=== PATIENT | male | born 1960 | race Caucasian/White ===

== ENCOUNTER 2016-11-11 01:44 | Inpatient (IN) | payer BC ==
--- NOTE | ~2016-11-11 | IDS ---
Interim Discharge Summary [facility] [address] [place]. [address] NAME: SARAH KAY : 62 STATUS : ADM IN PAT#: [id number] AGE: 55 ADM/REG DATE : 11/11/16 MR#: [id number] REPORT SERV DATE: 11/22/16 DICTATED BY: MARIO GHOSH DATE: 11/22/16 REPORT STATUS : Draft TRANSCRIBED BY: MODLidia DATE: 11/22/16 ADMISSION DATE: 11/11/2016 DISCHARGE DATE: DIAGNOSES: So far include: 1. Kbe-UJ-jgvcofo-elevation myocardial infarction/multivessel coronary artery disease, for which the patient had to undergo coronary artery bypass grafting, today is postop day #3 and the patient is doing well. 2. Coronary artery disease, multivessel. 3. Hypertension, stable with medications. The patient is on a beta-nick currently. 4. Diabetes mellitus, well controlled with current insulin regimen. 5. Hyperlipidemia, the patient is on Lipitor and this is stable. 6. Obesity. 7. Tobacco abuse, the patient has quit smoking as of now. 8. Leukocytosis, most likely secondary to the CABG procedure itself as the patient is asymptomatic and doing well. BRIEF HOSPITAL COURSE: Mr. Kay is a 55-year-old male patient, who came in with chest pain and NSTEMI. The patient was watched for some time with IV heparin and within 24 hours, underwent cardiac catheterization. It was found that he had multivessel coronary artery disease, but since he was started on Plavix, the surgeons had to wait for Plavix washout. Then, the patient did undergo CABG after Plavix washout and came out fine. Today is postop day #3, and the patient is doing really well. He continues to have a wound drain in place, and there are also two other abdominal drains in place. It is up to CT Surgery to decide on taking these out. Today, he feels well, but still a little weak and definitely not ready for discharge. He may be ready for discharge in the next day or two based on Cardiology and CT Surgery opinion. ASHTYN/UNRULY Mario Ghosh M.D. / [id number] CC: Mario Ghosh M.D.
--- NOTE | ~2016-11-11 | DS ---
Discharge Summary [facility] [address] [facility] [place]. [address] NAME: SARAH KAY : 62 STATUS : DIS IN PAT#: [id number] AGE: 55 ADM/REG DATE : 11/11/16 MR#: [id number] REPORT SERV DATE: 11/23/16 DICTATED BY: DARLENE COELLO DATE: 11/23/16 REPORT STATUS : Draft TRANSCRIBED BY: MODL DATE: 11/23/16 ADMISSION DATE: 11/11/2016 DISCHARGE DATE: 11/23/2016 ADDENDUM: Addendum to interim discharge summary dictated by Dr. Kaci Siegel, yesterday on 11/22/2016. The patient was discharged on 11/23/2016. DISCHARGE DIAGNOSES: 1. Non-ST elevated myocardial infarction with multivessel coronary artery disease, status post coronary artery bypass grafting. 2. Multivessel coronary artery disease. 3. Hypertension, controlled on current medication regimen. 4. Diabetes mellitus, was controlled on metformin. Continue metformin. 5. Hyperlipidemia, on Lipitor, controlled. 6. Obesity. 7. Tobacco abuse. The patient to quit smoking. 8. History of chronic obstructive pulmonary disease, controlled. 9. Leukocytosis, resolved. CONSULTANTS ON THE CASE: Aerologist, Dr. Chan and Cardiothoracic surgery, Dr. Haddad and his nurse practitioner, Felix Barrera. For the whole details of hospitalization please refer to history of present illness dictated by Dr. Whyte and also to interim discharge summary dictated by Dr. Kaci Siegel on 11/22/2016. I personally saw this patient on the day of discharge, on 11/23/2016. The patient was doing well. He did not have any shortness of breath. No chest pain. Dr. Chan recommended the patient to be discharged and follow up with him in two to three weeks as well as cardiothoracic surgeon's nurse practitioner, Felix Barrera also recommended the patient to be discharged and follow up with Dr. Haddad in three to four weeks. The patient also was recommended to follow up with primary care provider, Yesenia Mac for further blood sugar control. His hemoglobin A1c on 11/15/2016 was 6.6, on 11/18/2016 was 7. His blood sugar was controlled. He is okay to continue metformin at a dose of 500 mg p.o. b.i.d., and if necessary he can increase to 1000 mg p.o. b.i.d. This was discussed with the patient once discharged in a stable condition. DISCHARGE MEDICATIONS: Albuterol MDI one to two puffs q.6 hours p.r.n. for shortness of breath; amiodarone 200 mg p.o. b.i.d., prescription was prescribed by Dr. Chan; aspirin 81 mg daily; Lipitor 40 mg daily; Plavix 75 mg p.o. daily, prescription was written by Felix Barrera for three months; hydrocodone with acetaminophen 10/325 one tablet p.o. q.6 hours p.r.n. for pain, prescription was written by Felix Barrera; metformin 500 mg p.o. b.i.d. to continue and if necessary can increase to 1000 mg p.o. b.i.d.; metoprolol 12.5 mg p.o. b.i.d., prescription was written by Dr. Chan; nitroglycerin at 0.3 mg sublingually as needed for chest pain; Spiriva one capsule by inhalation q.24 hours. The patient was told to stop HCTZ and stop Mobic. Discharge Summary [address] [address] NAME: SARAH KAY : 62 STATUS : DIS IN PAT#: [id number] AGE: 55 ADM/REG DATE : 11/11/16 MR#: [id number] REPORT SERV DATE: 11/23/16 DICTATED BY: DARLENE COELLO DATE: 11/23/16 REPORT STATUS : Draft TRANSCRIBED BY: MODLidia DATE: 11/23/16 The patient needs to follow up with Dr. Chan in two to three weeks. Follow up with Cardiothoracic Surgery nurse practitioner and Dr. Haddad in two to three weeks, and with Yesenia Mac in two weeks for further blood sugar control. The patient was discharged in a stable condition. I spent 45 minutes on discharge. MG/UNRULY Darlene Coello M.D. / [id number] CC: Neal Cardoso M.D.
--- NOTE | ~2016-11-11 | CN ---
Consultation Report [facility] [address] [place]. [address] NAME: SARAH KAY : 62 STATUS : ADM Kristy PAT#: [id number] AGE: 55 ADM/REG DATE : 11/11/16 MR#: [id number] REPORT SERV DATE: 11/11/16 DICTATED BY: YOKO TALAMANTES DATE: 11/11/16 REPORT STATUS : Draft TRANSCRIBED BY: MODL DATE: 11/11/16 CONSULT DATE OF CONSULTATION: 11/11/2016 NURSE-PRACTITIONER WITH CARDIOTHORACIC SURGERY REASON FOR CONSULTATION: Multivessel coronary artery disease, non-ST elevation myocardial infarction. HISTORY OF PRESENT ILLNESS: This is a 55-year-old, morbidly obese, male with a history of hypertension, type 2 diabetes mellitus, obstructive sleep apnea, and ongoing tobacco abuse. He presented to the [facility] Emergency Room last night with complaints of chest pain that was radiating to his jaw. He said that he has been having chest pain on and off for the last two weeks but finally went yesterday evening for evaluation. In the Emergency Room there, he had elevated troponin and was transferred here. He has apparent history of allergy to aspirin so he was given 300 mg of Plavix this morning and then another 75 mg this afternoon prior to being taken for arteriogram which showed multivessel coronary artery disease including 80% ostial to 95% mid LAD, 90% proximal circumflex, 75% first obtuse marginal, 85% ostial left circumflex, 60% mid RCA, 95% right PDA, and 70% second RPL. V-gram was not performed due to elevated creatinine. Transthoracic echocardiogram earlier today showed ejection fraction around 45% to 50% with no significant valvular disease. Currently, the patient is recovering after arteriogram with no complaints of chest pain or shortness of breath. His family is with him at the bedside. PAST MEDICAL HISTORY: Hypertension, obesity, obstructive sleep apnea, recently diagnosed with type 2 diabetes mellitus, and ongoing tobacco abuse. PAST SURGICAL HISTORY: No prior surgeries. SOCIAL HISTORY: He smoked around a pack and half to two packs per day for around 30-40 years. He denies any history of alcohol abuse or use of illicit drugs. He has a very large supportive family. 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 FAMILY HISTORY: He has a mother with history of lung cancer, father with coronary artery disease, and cancer. ALLERGIES: REPORTED ALLERGY TO ASPIRIN WHICH CAUSES PERIORBITAL SWELLING. HOME MEDICATIONS: Hydrochlorothiazide 25 mg per day, meloxicam 7.5 mg b.i.d., and metformin 500 mg p.o. b.i.d. REVIEW OF SYSTEMS: A 10-point review of systems was obtained and is negative other than HPI. Consultation Report [facility] [id number] [place]. [address] NAME: SARAH KAY : 62 STATUS : ADM Kristy PAT#: [id number] AGE: 55 ADM/REG DATE : 11/11/16 MR#: [id number] REPORT SERV DATE: 11/11/16 DICTATED BY: YOKO TALAMANTES DATE: 11/11/16 REPORT STATUS : Draft TRANSCRIBED BY: UNRULY DATE: 11/11/16 DATA: White blood cell count 9.1, hemoglobin 15.2, hematocrit 45.8, platelets 229. Sodium 139, potassium 3.8, chloride 102, bicarbonate 27, BUN 20, creatinine 1.3. Glucose 151, hemoglobin A1c 6.9%. PHYSICAL EXAMINATION: VITAL SIGNS: Temperature 97.7, heart rate 76, blood pressure 110/65, respiratory rate 15, O2 saturation 95% on 3 L. GENERAL: Morbidly obese male, lethargic in no acute distress. PSYCH: Normal mood, talkative pleasant. NEURO: Alert and oriented x3. Pupils are equal, round, reactive to the light and accommodation. He has equal strength bilateral upper extremities and bilateral lower extremities. Left lower extremity is uncomfortable for him to move due to previous injury. HEENT: Head normocephalic, atraumatic. Sclerae clear. He has exophthalmos. Nose midline with no abnormalities. Teeth good dentition overall. Ears, no abnormalities. NECK: Supple. No thyromegaly or lymphadenopathy. LUNGS: Clear to auscultation bilaterally. Diminished at bases. CARDIAC: S1-S2 with no murmurs, rubs, or gallops. I do not appreciate any bruits on auscultation of the carotids. ABDOMEN: Obese, nontender with active bowel sounds. EXTREMITIES: Generalized lower extremity edema. Pedal pulses are present and equal bilaterally. ASSESSMENT AND PLAN: This is a 55-year-old, male, with history of high blood pressure, type 2 diabetes mellitus, obstructive sleep apnea with ongoing tobacco abuse. He has had chest pain x2 weeks. He was admitted with non-ST elevation DE and found to have 3-4 vessel CAD in need of urgent revascularization but has unfortunately received 375 mg of Plavix today. I discussed the risks and benefits of surgery as well as his STS risk scores. STS risk stratification for him and this particular surgery included an overall mortality of 1.5% and morbidity mortality of 24%. I discussed these findings in relation to his surgery and expectations for recovery, and the patient is hesitant to stay but agreeable to proceed. We will ask Pulmonary to see him prior to surgery for evaluation and workup. We will also get a CT scan of the chest without contrast and bilateral lower extremity venous mapping, most likely have to wait until next Tuesday to proceed with surgery to allow for Plavix washout. Thank you for the consultation. JAYLA/UNRULY Yoko Talamantes NP Consultation Report [address] [address] NAME: SARAH KAY : 62 STATUS : ADM Kristy PAT#: [id number] AGE: 55 ADM/REG DATE : 11/11/16 MR#: [id number] REPORT SERV DATE: 11/11/16 DICTATED BY: YOKO TALAMANTES DATE: 11/11/16 REPORT STATUS : Draft TRANSCRIBED BY: UNRULY DATE: 11/11/16 / [id number] CC: MD Merly Drummond M.D.
--- NOTE | ~2016-11-11 | HP ---
History And Physical [facility] [address] [place]. [address] NAME: SARAH KAY : 62 STATUS : ADM Kristy PAT#: [id number] AGE: 55 ADM/REG DATE : 11/11/16 MR#: [id number] REPORT SERV DATE: 11/11/16 DICTATED BY: CHELSIE DE GUZMAN DATE: 11/11/16 REPORT STATUS : Draft TRANSCRIBED BY: MODLidia DATE: 11/11/16 DATE OF ADMISSION: 11/11/2016 POINT OF ENTRY: Transfer from [facility] Emergency Department. CHIEF COMPLAINT: Chest pain. HISTORY OF PRESENT ILLNESS: Mr. Kay is a 55-year-old male with a history of hypertension, ljg-wvmgxtw-tibgiwozh diabetes type 2, as well as active tobacco abuse, who presented to [facility] Emergency Department the evening of 11/10/2016 with a two-week history of intermittent episodes of substernal chest pain. The patient states for the past two weeks, he has had intermittent episodes of substernal chest discomfort described as heaviness with pressure as well as sometimes soreness. The patient actually described the discomfort originally started as a feeling as if there was outward pressure on his chest as well as sensation of an air bubble under his sternum. Initially, these chest pain episodes occurred at night and awaken him from sleep. However, they have started to occur with more frequency and actually occurred three separate times on the evening of 11/10/2016 prompting his presentation to the emergency department. The patient denies any radiation of this discomfort or soreness, but does report some associated fatigue, exercise intolerance, as well as shortness of breath. The patient reportedly suffered a mechanical fall about four months ago with injuring his right shoulder. Since then, he has had persistent dizziness as well as headaches, which have improved as time has gone on since his accident, but are still persistent. The patient does admit to some recent gastroesophageal reflux disease as well. Initial evaluation at [facility] Emergency Department is notable for EKG that was nonischemic. Troponin was negative. D-dimer was negative. CT scan of the brain also was undertaken that reportedly was unremarkable. The patient was subsequently transferred to [facility] for higher level of care. Upon admission here, his repeat EKG also was nonischemic. However, repeat cardiac enzymes do show an elevated CK level of 275 and troponin 0.21. The patient was subsequently admitted to the Hospitalist Service for further evaluation management. In addition to the above-mentioned complaints, the patient denies any recent troubles with abdominal pain, nausea, vomiting, diarrhea, constipation, dysuria, melena, hematochezia, hemoptysis, hematemesis, fevers, night sweats, or chills. COMPREHENSIVE REVIEW OF SYSTEMS: Otherwise, negative unless listed in history of present illness. PAST MEDICAL HISTORY: 1. Active tobacco abuse. 2. Hypertension. History And Physical [address] [address] NAME: SARAH KAY : 62 STATUS : ADM Kristy PAT#: [id number] AGE: 55 ADM/REG DATE : 11/11/16 MR#: [id number] REPORT SERV DATE: 11/11/16 DICTATED BY: CHELSIE DE GUZMAN DATE: 11/11/16 REPORT STATUS : Draft TRANSCRIBED BY: MODLidia DATE: 11/11/16 3. Uvr-lxhmckk-fkmgelagz diabetes mellitus type 2. SURGICAL HISTORY: None. ALLERGIES: ARE TO ASPIRIN, WHICH CAUSES PERIORBITAL SWELLING. HOME MEDICATIONS: 1. Hydrochlorothiazide 25 mg daily. 2. Meloxicam 7.5 mg b.i.d. 3. Metformin 500 mg b.i.d. SOCIAL HISTORY: He smokes about one to one and a half packs daily for the past 30+ years. He has at least 87-toad-doee smoking history. Denies any alcohol. Denies illicits. 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 FAMILY MEDICAL HISTORY: Mother with history of lung cancer. Father with coronary artery disease in his 60s, also with cancer. Siblings with history of coronary artery disease in 40s. LABS AND IMAGING: These were all obtained from transfer records from [facility] Emergency Department. 1. White count 11.2, hemoglobin 15.8, hematocrit 48.5, platelets 233. 2. Sodium is 140, potassium 4.3, chloride 100, carbon dioxide 34, BUN 28, creatinine 1.4, glucose is 113, calcium is 10.8, protein 7.5, albumin is 4.0, bilirubin is 0.3, ALT is 39, AST 27, alkaline phosphatase is 73. 3. Troponin 0.06, cut off is less than 0.07. D-dimer was 0.25, cut off was less than 0.50. 4. Chest x-ray per report is no acute abnormality. 5. CT scan of the brain per report shows no acute abnormality. 6. EKG performed at [facility] per my review shows normal sinus rhythm. No evidence of any acute ischemia or infarction. 7. Repeat cardiac enzymes at [facility], CK 275, CK-MB 4.8, troponin 0.21. PHYSICAL EXAMINATION: VITAL SIGNS: Temperature is 97.5 degrees Fahrenheit, pulse is 95, respirations 16, saturating 93% on 2 L by nasal cannula, blood pressure 143/77. GENERAL: The patient is awake, alert, in no acute distress. Resting comfortably in bed. He is an obese male. Family is at bedside. HEENT: Atraumatic, normocephalic. Moist mucous membranes. Pupils are equal, round, reactive to light and accommodation. Extraocular eye movements are intact. No scleral icterus. NECK: No jugular venous distention. No carotid bruits. CARDIAC: Regular rate and rhythm. No murmurs or gallops. Normal S1, S2. I am unable to reproduce any of his chest discomfort with palpation over the precordium or sternum. LUNGS: Clear to auscultation bilaterally. No wheezes, rhonchi, or crackles. ABDOMEN: Obese, soft, nontender, nondistended. Good bowel sounds. No rebound, guarding, or rigidity. History And Physical [address] [address] NAME: SARAH KAY : 62 STATUS : ADM Kristy PAT#: [id number] AGE: 55 ADM/REG DATE : 11/11/16 MR#: [id number] REPORT SERV DATE: 11/11/16 DICTATED BY: CHELSIE DE GUZMAN DATE: 11/11/16 REPORT STATUS : Draft TRANSCRIBED BY: MODL DATE: 11/11/16 EXTREMITIES: Warm and well perfused. No cyanosis, clubbing, or edema. SKIN: Warm and dry. PSYCH: Affect appropriate. NEURO: Alert and oriented x3. Cranial nerves 2 through 12 grossly intact. Speech is normal. Gait is not assessed. ASSESSMENT AND PLAN: Mr. Kay is a 55-year-old gentleman with falling, cardiac risk factors including obesity, family history of hypertension, diabetes, and active tobacco abuse, who presents with a two-week history of intermittent episodes of substernal chest pain and discomfort concerning for unstable angina, now found to have elevated troponin level 0.21. PROBLEM LIST: 1. Itp-JI-rtidvvyaq myocardial infarction. 2. Hypertension. 3. Wbj-jdbohxz-doyctrxvi diabetes mellitus type 2. 4. Active tobacco abuse. PLAN: 1. Bqz-FY-aldpvjbdi myocardial infarction. The patient has no previous coronary history, but does have multiple risk factors including diabetes, hypertension, tobacco abuse, family history, and morbid obesity. Now has a second set of cardiac enzymes that are mildly elevated. We will continue to trend out cardiac enzymes. Consult Cardiology for assistance given his elevated troponin level. We will initially schedule him for a stress test this morning. We will defer to Cardiology. Given his aspirin allergy, we will place him on Plavix as well as a high-dose statin. Checking lipid panel as well as hemoglobin A1c for further risk stratification. Counseled on need for tobacco cessation. 2. Hypertension. Continue the patient's hydrochlorothiazide. Continue to monitor blood pressure. 3. Qra-rmxxcki-xhynulhgw diabetes mellitus type 2. Check hemoglobin A1c. Holding metformin. Place him on level 1 sliding scale. 4. Active tobacco abuse. Counseled need for tobacco cessation. Nicotine replacement protocol. 5. DVT prophylaxis. Lovenox subcu. CODE STATUS: The patient wished to be full code. CARLOS/UNRULY Chelsie De Guzman MD / [id number] History And Physical [address] [address] NAME: SARAH KAY : 62 STATUS : ADM Kristy PAT#: [id number] AGE: 55 ADM/REG DATE : 11/11/16 MR#: [id number] REPORT SERV DATE: 11/11/16 DICTATED BY: CHELSIE DE GUZMAN DATE: 11/11/16 REPORT STATUS : Draft TRANSCRIBED BY: MODL DATE: 11/11/16 CC: MD Yesenia Oliva M.D.
--- NOTE | ~2016-11-11 | OP ---
Record Of Operation [facility] [place]. 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 ANESTHESIOLOGIST: Chris Hernandez M.D. PREOPERATIVE DIAGNOSES: 1. Non-ST segment elevation myocardial infarction. 2. Three-vessel coronary artery disease. 3. Hypertension. 4. Morbid obesity. 5. Obstructive sleep apnea. 6. Diabetes mellitus type 2. 7. Tobacco abuse. 8. Chronic obstructive pulmonary disease. POSTOPERATIVE DIAGNOSES: 1. Non-ST segment elevation myocardial infarction. 2. Three-vessel coronary artery disease. 3. Hypertension. 4. Morbid obesity. 5. Obstructive sleep apnea. 6. Diabetes mellitus type 2. 7. Tobacco abuse. 8. Chronic obstructive pulmonary disease. OPERATION PROCEDURE PERFORMED: 1. Median sternotomy. 2. Extracorporeal circulation. 3. Urgent coronary artery bypass grafting x5, left internal mammary artery, left anterior descending, reverse greater saphenous vein graft to D1, reverse greater saphenous vein graft to obtuse marginal #1, reverse greater saphenous vein graft to PDA sequenced to PLB. 4. MASSIMO. 5. Endoscopic vein harvest of right leg. 6. Sternal plating with [employer] SternaLock Chandana system. 7. Prevena dressing placement. COMPLICATIONS: None. TUBES AND DRAINS: A 24-Ghanaian Claudio in the left pleural space. A 32-Ghanaian straight to the anterior mediastinum. Atrial and ventricular wires were placed. POSTOPERATIVE CONDITION: To CVICU on no inotropic support. Transesophageal echo showed no AI, no , no MR, normal EF. Postoperative, there was preserved wall motion. Record Of Operation [facility] [address] [place]. [address] NAME: SARAH KAY : 62 STATUS : ADM IN PAT#: [id number] AGE: 55 ADM/REG DATE : 11/11/16 MR#: [id number] REPORT SERV DATE: 11/19/16 DICTATED BY: JASON BALDWIN DATE: 11/19/16 REPORT STATUS : Draft TRANSCRIBED BY: MODLidia DATE: 11/19/16 INTRAOPERATIVE FINDINGS: Enlarged heart and diffusely diseased targets with good ventricular function. The LAD was intramyocardial. All targets had diffuse disease. If he is to be considered for a redo in the future, he must lose at least 100 pounds prior to a redo. Currently, he is 330 pounds. DETAILS OF CARDIOPULMONARY BYPASS GRAFTIN. Graft #1, left internal mammary artery, left anterior descending, this was deepened and intra-myocardium, this is a 1.5 mm target. 2. Reverse greater saphenous vein graft to D2, this was a 1.5 mm target, diffusely diseased. 3. Reverse greater saphenous vein graft to obtuse marginal #1, this was a 1.5 mm target, it was diffusely diseased. 4. Reverse greater saphenous vein graft sequenced to the posterior descending artery and the posterior lateral branch. These were both 1.75 mm targets in both the PDA and the PLB were diffusely diseased along the entire course, could not clear the distal disease on either of these grafts. INDICATIONS FOR PROCEDURE: Mr. Kay is a morbidly obese, 55-year-old smoker with hypertension, diabetes mellitus who presented with an NSTEMI and underwent coronary catheterization which showed severe three-vessel coronary disease. He was admitted to the hospital and underwent a Plavix washout. Risks, benefits, and alternatives were discussed with the patient including, but not limited to, bleeding, infection, stroke, , heart attack, need for future operations. All questions were answered. His STS risk score was calculated and discussed with the patient. Mortality less than 5% and morbidity mortality less than 20%. All questions were answered. DESCRIPTION OF PROCEDURE: The patient was brought to the operating room and placed supine on the operating room table. After satisfactory induction of general endotracheal anesthesia, he was prepped and draped in the usual sterile fashion. Working simultaneously, a median sternotomy was performed while the endoscopic vein harvest was performed from the right leg. Skin and subcutaneous tissues were divided clavipectoral fascia was divided. Sternum was divided in the midline. Rultract retractor was placed and the internal mammary artery was harvested in a pedicle from its takeoff under the subclavian vein at the bifurcation of the diaphragm. Systemic heparinization was achieved. After three minutes, the pedicle was clipped and divided at the bifurcation. Hemostasis was obtained along the chest wall. A 24 Ghanaian Claudio was placed in the left pleural space and exteriorized. The Rultract retractor was removed. Sternal retractor was placed. The thymic tissue was divided in the midline up to the innominate vein. The pericardium was opened in the midline and T'd at the diaphragm. Pericardial well was created. Ascending aorta was cannulated through dual pursestring at the base of the innominate artery. Antegrade root vent cardioplegia tack was placed and a dual stage venous cannula was placed in the pursestring in the right atrial appendage. The vein was inspected and prepared for bypass. The mammary was brought down through a wide V in the pericardium prepared for bypass. The cardiopulmonary bypass was initiated after documentation of an adequate ACT. The targets were inspected. The cross-clamp was brought up and the heart was arrested with cold antegrade cardioplegia switching to cold antegrade cardioplegia and intermittent aliquots every 15 to 20 minutes throughout the remainder of Record Of Operation [facility] [id number] [facility] [place]. [address] NAME: SARAH KAY : 62 STATUS : ADM IN [facility]#: [id number] AGE: 55 ADM/REG DATE : 11/11/16 MR#: [id number] REPORT SERV DATE: 11/19/16 DICTATED BY: JASON BALDWIN DATE: 11/19/16 REPORT STATUS : Draft TRANSCRIBED BY: MODLidia DATE: 11/19/16 the cross clamp. The grafts were then performed as mentioned in the findings. All distal anastomoses were done with 8-0 Surgipro. The proximal anastomoses were done with 6-0 Prolene. Vein graft markers were placed. The grafts were de-aired and the atrial and ventricular pacing wires were placed and the cross-clamp was removed. The patient returned to normal sinus rhythm and was ultimately able to be weaned off cardiopulmonary bypass on inotropic support. Protamine was administered. He was decannulated. All cannulation sites were oversewn with 4-0 Prolene. Hemostasis was obtained. The pericardium was loosely reapproximated over the ascending aorta and the right ventricle with 2-0 silk. The 32- Ghanaian chest tube was placed under the sternum. The sternum was reapproximated with stainless steel sternal wires. Some of these were double wires. Pectoral fascia flaps were raised to the edge of the sternum and two SternaLock Chandana X plates were placed in the body of the sternum between the sternal wires and one 100-degree plate was placed on the manubrium, a total of 20 #16 mm screws were used to secure the plates. The clavipectoral fascia was reapproximated using running #1 Stratafix, subcutaneous tissues closed using running #1 Stratafix, skin closed using 2-0 Quill and Prevena dressing was placed. The patient was transferred to the CVICU in critical, stable condition [facility]/MODL Jason Baldwin MD / [id number] CC: MD Jhoan Gibson Jr., M.D.
--- NOTE | ~2016-11-11 | IDS ---
Interim Discharge Summary [facility] [address] [place]. [address] NAME: SARAH KAY : 62 STATUS : ADM IN PAT#: [id number] AGE: 55 ADM/REG DATE : 11/11/16 MR#: [id number] REPORT SERV DATE: 11/15/16 DICTATED BY: DATE: REPORT STATUS : Draft TRANSCRIBED BY: MODL DATE: 11/15/16 ADMISSION DATE: 11/11/2016 DISCHARGE DATE: DIAGNOSES: Current interim diagnoses list includes: 1. Non-STEMI. 2. Chest pain with pressure. 3. Hypertension. 4. Diabetes mellitus type 2. 5. Tobacco abuse. 6. Gastroesophageal reflux disease. 7. Morbid obesity with BMI of 47.3. 8. Multivessel coronary artery disease. 9. Heart failure with ejection fraction of 45%. 10.Dyslipidemia. HISTORY OF PRESENT ILLNESS: This is a 55-year-old male with a history of hypertension, non insulin-dependent diabetes mellitus type 2, as well as active tobacco abuse, who presented to [facility] Emergency Department on 11/10/2016 with a two-week history of intermittent episodes of substernal chest pain. Please see Dr. Dimitri Whyte's H and P on 11/11/2016. The patient was given aspirin at the hospital and developed a true aspirin allergy with swelling of his eyes after exposure to the drug. The patient has also been given Plavix at [facility]. The patient had aspirin desensitization performed by Dr. Chan on 11/12/2016 and a heart catheterization also done on 11/12/2016. The patient stayed in ICU until transferred to the floor on 11/14/2016. The patient had been loaded with Plavix on 11/11/2016, and he was supposed to go down for bypass surgery today but his TEG was 66%. We will be redrawing his TEG in the morning, and if it is appropriate, he will be having surgery around 1 o'clock. The patient has been seeing Dr. Bose for his potential surgery and Dr. Chan for Cardiology. Consultation has also been done with Pulmonary, Dr. Ortez to optimize his oxygenation. The patient has had an overnight sleep assessment and is awaiting the results of his sleep apnea workup. The patient did say that he had asthma as a child, but he grew out of it. Please see dictation by Sebastien Carrasquillo from 11/12/2016. The patient is receiving aggressive pulmonary toilet and has already been practicing with his ICS q.1 hour. Consult with Cardiovascular Surgery. He has a consultation on 11/11/2016, for three-vessel coronary artery disease. PROCEDURES AND IMAGIN. 11/11/2016, portable chest x-ray showed mild vascular prominence and potential early edema with no airspace consolidation. 2. 11/12/2016, carotid blood flow study showed no appreciable stenosis of the right carotid artery and findings were compatible with less than 50% stenosis of the left internal carotid artery. The vertebral arteries are patent with antegrade flow bilaterally. 3. 11/12/2016, chest x-ray without contrast showed minimal subpleural, lateral right lung base inflammatory or infectious tree in bud-like opacity, otherwise clear lungs. Three- vessel coronary artery atherosclerosis and/or stenting. Interim Discharge Summary [address] [address] NAME: SARAH KAY : 62 STATUS : ADM IN [facility]#: [id number] AGE: 55 ADM/REG DATE : 11/11/16 MR#: [id number] REPORT SERV DATE: 11/15/16 DICTATED BY: DATE: REPORT STATUS : Draft TRANSCRIBED BY: MODL DATE: 11/15/16 4. 11/12/2016 vein mapping of bilateral lower extremity showed bilateral greater saphenous veins, bilateral small saphenous veins mapping with ultrasound. 5. 11/15/2016, chest PA and lateral showed no evidence of acute cardiopulmonary disease. During this time, the patient's hemoglobin A1c is 6.6. Sodium is 141, potassium is 3.8, chloride is 102, bicarb is 30.2, BUN is 16, creatinine is 1.09, GFR is 89, glucose is 118, calcium is 9.0, magnesium is 2.4, phosphorus 3.4, WBCs 9.6, hemoglobin 15.7, hematocrit 36.1, platelets 219 and INR 1.1. [facility]/MODL Maddie Barreto NP / [id number] CC: MD Merly Chavez M.D.
--- NOTE | ~2016-11-11 | CN ---
Consultation Report [facility] [address] [place]. [address] NAME: SARAH KAY : 62 STATUS : ADM Kristy PAT#: [id number] AGE: 55 ADM/REG DATE : 11/11/16 MR#: [id number] REPORT SERV DATE: 11/15/16 DICTATED BY: KILO HAYWOOD DATE: 11/12/16 REPORT STATUS : Draft TRANSCRIBED BY: MODL DATE: 11/12/16 CONSULTATION NOTE DATE OF CONSULTATION: 11/12/2016 CHIEF COMPLAINT: Chest pain in a patient currently under consideration for coronary artery bypass graft surgery. HISTORY OF PRESENT ILLNESS: Mr. Sarah Kay is a morbidly obese, 55-year-old white male with a past medical history significant for hypertension and diabetes, who presents to [facility] as a transfer from an outside facility for complaints of chest pain. It should be noted that, Mr. Kay has not been hospitalized recently and is usually in relatively good health. Mr. Kay is not currently under the care of a skilled helper. He is not usually require supplemental oxygen. He is on no pulmonary medications. The patient has smoked up until the time of presentation. He smoked approximately one pack a day for approximately forty years. He does confirm snoring, frequent nighttime awakenings, daytime hypersomnolence, and frequent napping. He states that, he did have overnight sleep assessment and is currently in the process of an ongoing obstructive sleep apnea workup. The patient states that, he did have asthma as a child, but "grew out of it". He describes his exercise tolerance as being fairly good, being able to walk 50 to 100 yards before experiencing some degree of shortness of breath. Mr. Kay states that, he has not been followed by a primary care physician until recently. He was recently started on a hydrochlorothiazide as well as metformin. Apparently, this physician initiated the workup for obstructive sleep apnea. Moving forward, over the last week he has experienced episodic left-sided chest pain, which eventually prompted his presentation to an outside facility. He was eventually transferred to [facility] and underwent cardiac catheterization, which demonstrated 3-vessel disease. He is currently under consideration for potential coronary artery bypass graft surgery. Given his past tobacco abuse, he has been referred to the Pulmonary Service for risk assessment as well as optimization. Currently, Mr. Kay is on 2 L of supplemental oxygen with good saturations. He denies any dyspnea at rest. He denies any wheezing. He does not demonstrate a productive cough. He denies any previous pneumonias or exacerbations of his breathing. He does state that, he had asthma as a child, but again states that he "grew out of it". The patient does have known hypertension. He does have known coronary artery disease. He currently denies any murmurs or palpitations. In regard to constitutional symptoms, he currently denies fever, chills, nausea, vomiting, abdominal pain. He has had some mild lower extremity edema as of late. Consultation Report [facility] [address] [place]. [address] NAME: SARAH KAY : 62 STATUS : ADM Kristy PAT#: [id number] AGE: 55 ADM/REG DATE : 11/11/16 MR#: [id number] REPORT SERV DATE: 11/15/16 DICTATED BY: KILO HAYWOOD DATE: 11/12/16 REPORT STATUS : Draft TRANSCRIBED BY: UNRULY DATE: 11/12/16 PAST MEDICAL HISTORY: 1. Hypertension. 2. Diabetes. 3. Tobacco dependency. PAST SURGICAL HISTORY: Noncontributory. FAMILY HISTORY: The patient states that, his mother may have had mesothelioma. He states, his father had some type of cancer that eventually metastasized to his lungs. SOCIAL HISTORY: The patient is . His current is at bedside. He has three biologic children from a previous marriage, who are in good health. 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 He knows of no specific exposures to silica or asbestos. TOBACCO/ALCOHOL: The patient has smoked up until the time of presentation. He has smoked approximately one pack a day for a period of forty years. He denies any recent alcohol or illicit drug use. MEDICATIONS: 1. Hydrochlorothiazide 25 mg. 2. Meloxicam 7.5 mg. 3. Metformin 500 mg. ALLERGIES: THE PATIENT HAS KNOWN ALLERGY TO ASPIRIN, WHICH CAUSES PERIORBITAL EDEMA. REVIEW OF SYSTEMS: A complete review of systems was performed with pertinent positives and negatives contained within the body of the HPI. PHYSICAL EXAMINATION: VITAL SIGNS: BP 146/78, heart rate is 80, T-max is 98.3, respiratory rate is 16, SpO2 is 95% on 2 L nasal cannula. GENERAL: The patient is a pleasant, well-nourished/well-developed male, who is not currently exhibiting any signs of acute distress. Skin: Skin with appropriate texture and turgor. No rashes, lesions, or ulcers. Nails are clear without cyanosis or clubbing. HEENT: Head: Skull is normocephalic/atraumatic. Facies symmetric. No masses or lesions. Eyes: Sclera anicteric, conjunctiva pink without exudates. Extra ocular movements intact. Pupils are equal, round, reactive to light. Ears: Auricles and tragus without pain to palpation. Hearing is grossly intact. Nose: Bilateral nasal patency. Sinuses without tenderness upon palpation. Throat: Edentulous in the uppers. Lips, oral mucosa, tongue, palate, and pharynx pink and moist without lesions. Uvula rises equally on phonation. Tongue midline without deviation. NECK: Neck supple. Trachea midline. No cervical lymphadenopathy appreciated. Significant Consultation Report [address] [place]. [address] NAME: SARAH KAY : 62 STATUS : ADM Kristy PAT#: [id number] AGE: 55 ADM/REG DATE : 11/11/16 MR#: [id number] REPORT SERV DATE: 11/15/16 DICTATED BY: KILO HAYWOOD DATE: 11/12/16 REPORT STATUS : Draft TRANSCRIBED BY: UNRULY DATE: 11/12/16 redundant tissue appreciated. THORAX/LUNGS: Thorax is symmetric with equal chest rise. Breath sounds audible through entire field. No rales, wheezes, rhonchi CARDIOVASCULAR: Regular rate and rhythm. No murmurs, rubs, or gallops. Anterior chest without thrills, heaves, or lifts. ABDOMEN: Soft. Non-distended, non-tender. Active bowel sounds in all four quadrants. No hepatosplenomegaly noted. PERIPHERAL VASCULAR: Mild edema. No varicosities, stasis changes, open sores, ulcerations, or phlebitis. 2+ pulses in radial and dorsalis pedis. MUSCULOSKELETAL: Full AROM and PROM in all joints. No evidence of erythema, deformity, or crepitus. NEUROLOGIC: CN II - XII grossly intact. Good muscle bulk and tone bilaterally. Strength 5/5 throughout. PSYCHIATRIC: Patient demonstrates good judgment and insight. Pt is A&O x 3. ACCESSORY DATA: Reveals a white blood cell count of 9300, hemoglobin and hematocrit are 14.4 and 43.9. Electrolyte panel is within normal limits. Blood glucose is elevated at 113. Troponin is 0.35. CPKs 287. No appreciable stenosis of the right carotid, less than 50% stenosis of the left carotid. Chest x-ray reveals mild vascular prominence and potential early edema. CT of the chest without contrast reveals some minimal subpleural lateral right lung base inflammatory or infectious tree-in-bud opacities, otherwise clear. Echocardiogram has been reviewed. IMPRESSION: 1. Three-vessel disease, currently awaiting coronary artery bypass graft surgery. 2. Hypertension. 3. Diabetes mellitus. 4. Clinical chronic obstructive pulmonary disease. 5. Clinical obstructive sleep apnea. 6. Tobacco dependency - complicated. PLAN: 1. At this time, the patient could be considered to be a [id number] risk for pre, karl, and postoperative pulmonary complications. To better elucidate his level of risk, we will obtain baseline ABGs, pulmonary function testing, or at least bedside spirometry. With the current data that has been provided, his overall risk using the ARISCAT score would be 42.1% for complications including atelectasis, infection, respiratory failure, hypoxemia, or exacerbation of COPD. His overall risk for prolonged mechanical ventilation is greater than 48 hours using the Arozullah score is only 4.2%. 2. We will attempt to further improve his pulmonary status with aggressive pulmonary toilet and pulmonary medications. That being said, he is near optimized from a pulmonary standpoint. 3. In regard to the patient's clinical COPD, again he will be treated with bronchodilators. We will follow his pulmonary function testing with further Consultation Report [address] [place]. [address] NAME: SARAH KAY : 62 STATUS : ADM Kristy PAT#: [id number] AGE: 55 ADM/REG DATE : 11/11/16 MR#: [id number] REPORT SERV DATE: 11/15/16 DICTATED BY: KILO HAYWOOD DATE: 11/12/16 REPORT STATUS : Draft TRANSCRIBED BY: MODL DATE: 11/12/16 recommendations. We will offer him outpatient followup as well. 4. In regard to the patient's probable obstructive sleep apnea, it seems that he is currently undergoing a workup for this process. That being said, moving forward would be helpful be mindful of this should he need CPAP support at hour of sleep after his surgery. 5. In regard to the patient's tobacco dependency, he has established a quit date and seems sincere in his efforts to stop smoking. We will continue to reinforce this moving forward. The aforementioned impression and plan has been discussed with Dr. Ortez, who will follow further recommendations. We thank you for this consult and look forward to participating in the care of. Sarah Kay. GBS/MODL Kilo Haywood PA-C / [id number] CC: MD Merly Drummond M.D.
--- NOTE | ~2016-11-11 | CN ---
Consultation Report [facility] [address] [place]. [address] NAME: SARAH KAY : 62 STATUS : ADM Kristy PAT#: [id number] AGE: 55 ADM/REG DATE : 11/11/16 MR#: [id number] REPORT SERV DATE: 11/11/16 DICTATED BY: CHELSIE CHAN JR. DATE: 11/11/16 REPORT STATUS : Draft TRANSCRIBED BY: MODLidia DATE: 11/11/16 CARDIOLOGY CONSULTATION DATE OF CONSULTATION: 11/11/2016 HISTORY OF PRESENT ILLNESS: A 55-year-old white male with multiple coronary risk factors, reports to the hospital at [facility] with recent onset of substernal chest pain radiating to his jaw and to his mid back area, occurs with exercise and at rest. Initial troponin was normal at the referring hospital and is reported as 0.21 on arrival at [facility]. CPK 275, MB units 4.8. Some indigestion lately. No nausea or vomiting. Unfortunately, he reports what is probably a true aspirin allergy with swelling of his eyes after exposure to this drug. Hospital list is already loaded with 300 mg of Plavix. Hopefully, he will not need to multivessel CAB procedure. His EKG is normal making the possibility of left circumflex disease, possibility hopefully with stent treatment. Cardiac Election Assistant is full today, only emergencies. He is chest pain-free. Plan tomorrow. Echo today. ALLERGIES: ASPIRIN. HOME MEDICATIONS: As noted. 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 One and half packs per day for thirty five years cigarette smoker. . No alcohol or illicit drugs. FAMILY HISTORY: Positive for a sister with myocardial infarction at age [age] six. Recently diagnosed diabetes mellitus and hypertension. Truncal obesity, GERD. PHYSICAL EXAMINATION: VITAL SIGNS: Blood pressure 139 to 172 over 92 to 97, pulse is 95 and regular, respirations 18, afebrile. HEENT: No xanthelasma. NECK: No JVD at 30 degrees, no thyromegaly, no carotid bruit. LUNGS: Clear to auscultation and percussion. COR: No thrills, heaves, normal S1, S2. No gallop. No rub. No murmur. ABD: Soft, nontender, no hepatosplenomegaly, no mass. EXT: Right radial Itz's test normal. MS: Back without spine or costovertebral angle tenderness. NEURO: Symmetric findings. DISCUSSION: Classical symptoms of unstable angina, new onset with multiple coronary risk factors with initially normal troponin at his referring hospital, now troponin is up to 0.21. The patient is chest pain-free. Mild elevation of CPK. With normal EKG, consider the possibility of left circumflex disease. Hopefully, revascularization if needed can be Consultation Report [address] [place]. [address] NAME: SARAH KAY : 62 STATUS : ADM Kristy PAT#: [id number] AGE: 55 ADM/REG DATE : 11/11/16 MR#: [id number] REPORT SERV DATE: 11/11/16 DICTATED BY: CHELSIE CHAN JR. DATE: 11/11/16 REPORT STATUS : Draft TRANSCRIBED BY: UNRULY DATE: 11/11/16 performed percutaneously from a radial approach. He had to be loaded with Plavix when he came in and this would delay coronary artery bypass surgery if required. This is certainly a possibility clinically. True aspirin allergy is suspected. Thank you for this consultation. MAY/UNRULY Chelsie Chan Jr., M.D. / [id number] CC: MD Yesenia Oliva MD
[2016-11-11] MEDS ORDERED: HYDROCHLOROT25 MG PO (02:23)
[2016-11-11] MEDS ORDERED: GLUCPH PO (02:24)
[2016-11-11] MEDS ORDERED: MOBIC7.5 PO (02:28)
[2016-11-11 03:34] LABS: CPK 275 U/L (0-200)
[2016-11-11 03:35] LABS: CK-MB 4.8 NG/ML; TROPONIN I 0.21 NG/ML (<0.05)
[2016-11-11 05:25] LABS: BASOPHILS 0.1 %; BASOPHILS ABSOLUTE 0.01 10/3/uL (0.0-0.16); EOSINOPHILS 1.3 %; EOSINOPHILS ABSOLUTE 0.12 10/3/uL (0.0-0.53); HEMATOCRIT 45.8 % (40.0-51.0); HEMOGLOBIN 15.2 g/dL (13.6-17.8); IMMATURE GRANULOCYTES 0.1 %; IMMATURE GRANULOCYTES ABSOLUTE 0.01 10/3/uL (0.0-0.11); LYMPHOCYTES 34.9 %; LYMPHOCYTES ABSOLUTE 3.18 10/3/uL (0.67-4.30); MEAN CORPUS HGB CONC 33.2 g/dL (32.0-36.0); MEAN CORPUSCULAR HEMOGLOB 29.6 pg (26.0-34.0); MEAN CORPUSCULAR VOLUME 89.1 fL (80-100); MEAN PLATELET VOLUME 9.6 fL (9.2-13.0); MONOCYTES 9.3 %; MONOCYTES ABSOLUTE 0.85 10/3/uL (0.21-1.20); NEUTROPHILS 54.3 %; NEUTROPHILS ABSOLUTE 4.93 10/3/uL (2.02-8.40); PLATELET COUNT 229 10/3/uL (150-400); RED CELL COUNT 5.14 10/6/uL (4.7-6.1); WHITE BLOOD CELLS 9.1 10/3/uL (4.5-10.5)
[2016-11-11 05:26] LABS: MANUAL DIFF NO %
[2016-11-11 05:45] LABS: BUN (BLOOD UREA NITROGEN) 20 MG/DL (6-23); CALCIUM, SERUM 9.4 MG/DL (8.5-10.4); CHLORIDE, SERUM 102 MMOL/L (96-112); CHOL/HDL RATIO(NOT ORDER) 4.5 (0-5); CHOLESTEROL 165 MG/DL (< 200); CO2 (CARBON DIOXIDE) 27 MMOL/L (24-34); CREATININE 1.27 MG/DL (0.70-1.30); GFR AFRICAN AMERICAN 74 ML/MIN (>=60); GFR NON AFRICAN AMERICAN 64 ML/MIN (>=60); GLUCOSE, SERUM 151 MG/DL (60-99); HDL CHOLESTEROL 37 MG/DL (> 39); LDL CHOLESTEROL 90 MG/DL (< 130); NON-HDL CHOLESTEROL 128 MG/DL (< 160); POTASSIUM, SERUM 3.8 MMOL/L (3.5-5.3); SODIUM, SERUM 139 MMOL/L (135-148); TRIGLYCERIDE 194 MG/DL (< 150)
[2016-11-11 08:47] LABS: CK-MB 5.2 NG/ML
[2016-11-11 08:49] LABS: CKMB INDEX (NOT ORD) 1.8
[2016-11-11 08:50] LABS: TROPONIN I 0.37 NG/ML (<0.05)
[2016-11-11 10:47] LABS: INTERNATIONAL NORMAL RATI 1.1 UNITS (-); PROTIME (NOT ORD) 14.1 SEC (12.0-14.5)
[2016-11-11 10:48] LABS: PARTIAL THROMBO TIME 32.8 SEC (22.5-37.2)
[2016-11-12 02:47] LABS: BASOPHILS 0.2 %; BASOPHILS ABSOLUTE 0.02 10/3/uL (0.0-0.16); EOSINOPHILS 1.5 %; EOSINOPHILS ABSOLUTE 0.14 10/3/uL (0.0-0.53); HEMATOCRIT 43.9 % (40.0-51.0); HEMOGLOBIN 14.4 g/dL (13.6-17.8); IMMATURE GRANULOCYTES 0.2 %; IMMATURE GRANULOCYTES ABSOLUTE 0.02 10/3/uL (0.0-0.11); LYMPHOCYTES 33.2 %; LYMPHOCYTES ABSOLUTE 3.09 10/3/uL (0.67-4.30); MEAN CORPUS HGB CONC 32.8 g/dL (32.0-36.0); MEAN CORPUSCULAR HEMOGLOB 29.6 pg (26.0-34.0); MEAN CORPUSCULAR VOLUME 90.1 fL (80-100); MEAN PLATELET VOLUME 9.4 fL (9.2-13.0); MONOCYTES 8.2 %; MONOCYTES ABSOLUTE 0.76 10/3/uL (0.21-1.20); NEUTROPHILS 56.7 %; NEUTROPHILS ABSOLUTE 5.28 10/3/uL (2.02-8.40); PLATELET COUNT 203 10/3/uL (150-400); RED CELL COUNT 4.87 10/6/uL (4.7-6.1); WHITE BLOOD CELLS 9.3 10/3/uL (4.5-10.5)
[2016-11-12 02:49] LABS: MANUAL DIFF NO %
[2016-11-12 03:03] LABS: ALBUMIN 3.2 G/DL (3.5-5.0); BUN (BLOOD UREA NITROGEN) 21 MG/DL (6-23); CHLORIDE, SERUM 103 MMOL/L (96-112); CREATININE 1.19 MG/DL (0.70-1.30); GFR AFRICAN AMERICAN 80 ML/MIN (>=60); GFR NON AFRICAN AMERICAN 69 ML/MIN (>=60); POTASSIUM, SERUM 3.8 MMOL/L (3.5-5.3); SODIUM, SERUM 143 MMOL/L (135-148)
[2016-11-12 03:05] LABS: CALCIUM, SERUM 8.4 MG/DL (8.5-10.4); CO2 (CARBON DIOXIDE) 32 MMOL/L (24-34); GLUCOSE, SERUM 113 MG/DL (60-99)
[2016-11-12 06:17] LABS: MAX AMP (ADP) 52.4 MM (35-68)
[2016-11-12 14:20] LABS: INSTRUMENT SERIAL # 35151; pH 7.41 (7.37-7.43)
[2016-11-12 14:21] LABS: ALLENS TEST Pos; BE (BASE EXCESS) 4.4 MEQ/L (0 +/- 2.5); CARBOXYHEMOGLOBIN 0.9 % (0-3); HCO3 (ACTUAL BICARBONATE) 30.2 MEQ/L (23-27); HEMOBLOGIN CONTENT 15.7 G/DL (14-18); METHEMOGLOBIN 0.4 % (0-3); O2 CONTENT 20.8 VOL% (18-24); OPERATOR ID 31928; PCO2 (CO2 TENSION) 49 MMHG (35-45); PO2 (O2 TENSION) 78 MMHG (79-93); SAMPLE Arterial
[2016-11-13 06:05] LABS: BASOPHILS 0.2 %; BASOPHILS ABSOLUTE 0.02 10/3/uL (0.0-0.16); EOSINOPHILS 2.1 %; EOSINOPHILS ABSOLUTE 0.17 10/3/uL (0.0-0.53); HEMOGLOBIN 14.6 g/dL (13.6-17.8); IMMATURE GRANULOCYTES 0.1 %; IMMATURE GRANULOCYTES ABSOLUTE 0.01 10/3/uL (0.0-0.11); LYMPHOCYTES 39.7 %; LYMPHOCYTES ABSOLUTE 3.19 10/3/uL (0.67-4.30); MANUAL DIFF NO %; MEAN CORPUS HGB CONC 33.2 g/dL (32.0-36.0); MEAN CORPUSCULAR VOLUME 90.3 fL (80-100); MEAN PLATELET VOLUME 9.7 fL (9.2-13.0); MONOCYTES 10.8 %; MONOCYTES ABSOLUTE 0.87 10/3/uL (0.21-1.20); NEUTROPHILS 47.1 %; NEUTROPHILS ABSOLUTE 3.78 10/3/uL (2.02-8.40); PLATELET COUNT 198 10/3/uL (150-400); RBC DISTRIBUTION WIDTH 12.9 % (12.0-16.0); RED CELL COUNT 4.87 10/6/uL (4.7-6.1)
[2016-11-13 06:25] LABS: CALCIUM, SERUM 8.4 MG/DL (8.5-10.4); CHLORIDE, SERUM 104 MMOL/L (96-112); CO2 (CARBON DIOXIDE) 30 MMOL/L (24-34); CREATININE 1.04 MG/DL (0.70-1.30); GFR AFRICAN AMERICAN 94 ML/MIN (>=60); GFR NON AFRICAN AMERICAN 81 ML/MIN (>=60); GLUCOSE, SERUM 135 MG/DL (60-99); SODIUM, SERUM 141 MMOL/L (135-148)
[2016-11-13 06:27] LABS: BUN (BLOOD UREA NITROGEN) 17 MG/DL (6-23); CK-MB 2.4 NG/ML; CPK 198 U/L (0-200); POTASSIUM, SERUM 4.1 MMOL/L (3.5-5.3); TROPONIN I 0.32 NG/ML (<0.05)
[2016-11-14 07:11] LABS: BASOPHILS 0.1 %; BASOPHILS ABSOLUTE 0.01 10/3/uL (0.0-0.16); EOSINOPHILS 1.3 %; EOSINOPHILS ABSOLUTE 0.11 10/3/uL (0.0-0.53); HEMATOCRIT 44.1 % (40.0-51.0); HEMOGLOBIN 14.7 g/dL (13.6-17.8); IMMATURE GRANULOCYTES 0.2 %; IMMATURE GRANULOCYTES ABSOLUTE 0.02 10/3/uL (0.0-0.11); LYMPHOCYTES 28.3 %; LYMPHOCYTES ABSOLUTE 2.46 10/3/uL (0.67-4.30); MEAN CORPUS HGB CONC 33.3 g/dL (32.0-36.0); MEAN CORPUSCULAR HEMOGLOB 29.8 pg (26.0-34.0); MEAN CORPUSCULAR VOLUME 89.5 fL (80-100); MEAN PLATELET VOLUME 9.6 fL (9.2-13.0); MONOCYTES 10.1 %; MONOCYTES ABSOLUTE 0.88 10/3/uL (0.21-1.20); NEUTROPHILS ABSOLUTE 5.21 10/3/uL (2.02-8.40); PLATELET COUNT 190 10/3/uL (150-400); RBC DISTRIBUTION WIDTH 13.1 % (12.0-16.0); RED CELL COUNT 4.93 10/6/uL (4.7-6.1); WHITE BLOOD CELLS 8.7 10/3/uL (4.5-10.5)
[2016-11-14 07:12] LABS: MANUAL DIFF NO %
[2016-11-14 07:20] LABS: ALBUMIN 3.1 G/DL (3.5-5.0); BUN (BLOOD UREA NITROGEN) 19 MG/DL (6-23); CALCIUM, SERUM 8.7 MG/DL (8.5-10.4); CHLORIDE, SERUM 104 MMOL/L (96-112); CO2 (CARBON DIOXIDE) 31 MMOL/L (24-34); CREATININE 1.04 MG/DL (0.70-1.30); GFR AFRICAN AMERICAN 94 ML/MIN (>=60); GFR NON AFRICAN AMERICAN 81 ML/MIN (>=60); GLUCOSE, SERUM 144 MG/DL (60-99); PHOSPHORUS, SERUM 3.4 MG/DL (2.5-4.5); POTASSIUM, SERUM 3.9 MMOL/L (3.5-5.3); SODIUM, SERUM 142 MMOL/L (135-148)
[2016-11-14 07:55] LABS: TEG - ANGLE 64.3 DEG (53-72); TEG - MAXIMUM AMPLITUDE 59.7 MM (50-70); TEG - RATE 7.5 MIN (5.0-10.0)
[2016-11-14 07:56] LABS: TEG - COAGULATION INDEX -1.2 (-3 TO 3); TEG PLAVIX/EFFIENT/TICLID(ADP) 38.7 % INHIB (< 40)
[2016-11-14 07:57] LABS: MAX AMP (ADP) 40.6 MM (35-68)
[2016-11-15 04:53] LABS: BASOPHILS 0.2 %; BASOPHILS ABSOLUTE 0.02 10/3/uL (0.0-0.16); EOSINOPHILS 1.3 %; EOSINOPHILS ABSOLUTE 0.12 10/3/uL (0.0-0.53); HEMATOCRIT 46.1 % (40.0-51.0); HEMOGLOBIN 15.7 g/dL (13.6-17.8); IMMATURE GRANULOCYTES 0.3 %; IMMATURE GRANULOCYTES ABSOLUTE 0.03 10/3/uL (0.0-0.11); LYMPHOCYTES 30.9 %; LYMPHOCYTES ABSOLUTE 2.96 10/3/uL (0.67-4.30); MEAN CORPUS HGB CONC 34.1 g/dL (32.0-36.0); MEAN CORPUSCULAR HEMOGLOB 30.3 pg (26.0-34.0); MEAN CORPUSCULAR VOLUME 88.8 fL (80-100); MEAN PLATELET VOLUME 9.9 fL (9.2-13.0); MONOCYTES 10.9 %; MONOCYTES ABSOLUTE 1.05 10/3/uL (0.21-1.20); NEUTROPHILS 56.4 %; NEUTROPHILS ABSOLUTE 5.41 10/3/uL (2.02-8.40); PLATELET COUNT 219 10/3/uL (150-400); RBC DISTRIBUTION WIDTH 12.9 % (12.0-16.0); RED CELL COUNT 5.19 10/6/uL (4.7-6.1); WHITE BLOOD CELLS 9.6 10/3/uL (4.5-10.5)
[2016-11-15 04:54] LABS: INTERNATIONAL NORMAL RATI 1.1 UNITS (-); MANUAL DIFF NO %; PROTIME (NOT ORD) 13.8 SEC (12.0-14.5)
[2016-11-15 04:55] LABS: PARTIAL THROMBO TIME 83.3 SEC (22.5-37.2)
[2016-11-15 05:09] LABS: % IRON SAT 38 % (20-50); A/G RATIO 0.9 (0.7-1.9); ALBUMIN 3.6 G/DL (3.5-5.0); ALKALINE PHOSPHATASE 74 U/L (45-117); BUN (BLOOD UREA NITROGEN) 16 MG/DL (6-23); CHLORIDE, SERUM 102 MMOL/L (96-112); CO2 (CARBON DIOXIDE) 30 MMOL/L (24-34); CREATININE 1.09 MG/DL (0.70-1.30); GFR AFRICAN AMERICAN 89 ML/MIN (>=60); GFR NON AFRICAN AMERICAN 77 ML/MIN (>=60); GLUCOSE, SERUM 118 MG/DL (60-99); IRON BINDING CAPACITY 334 MCG/DL (250-450); IRON, SERUM 128 MCG/DL (35-150); PHOSPHORUS, SERUM 3.4 MG/DL (2.5-4.5); POTASSIUM, SERUM 3.8 MMOL/L (3.5-5.3); SGOT(AST) 35 U/L (5-40); SGPT(ALT) 61 U/L (5-65); SODIUM, SERUM 141 MMOL/L (135-148); TOTAL BILIRUBIN 0.3 MG/DL (0-1.2); TOTAL PROTEIN 7.6 G/DL (6.0-8.5)
[2016-11-15 06:33] LABS: TEG - ANGLE 64.5 DEG (53-72); TEG - MAXIMUM AMPLITUDE 63.1 MM (50-70); TEG - RATE 6.3 MIN (5.0-10.0)
[2016-11-15 06:34] LABS: MAX AMP (ADP) 30.9 MM (35-68); TEG PLAVIX/EFFIENT/TICLID(ADP) 66.4 % INHIB (< 40)
[2016-11-16 06:31] LABS: BASOPHILS 0.2 %; BASOPHILS ABSOLUTE 0.02 10/3/uL (0.0-0.16); EOSINOPHILS 1.4 %; EOSINOPHILS ABSOLUTE 0.12 10/3/uL (0.0-0.53); HEMATOCRIT 45.9 % (40.0-51.0); HEMOGLOBIN 15.8 g/dL (13.6-17.8); IMMATURE GRANULOCYTES 0.2 %; IMMATURE GRANULOCYTES ABSOLUTE 0.02 10/3/uL (0.0-0.11); LYMPHOCYTES 33.5 %; LYMPHOCYTES ABSOLUTE 2.78 10/3/uL (0.67-4.30); MANUAL DIFF NO %; MEAN CORPUS HGB CONC 34.4 g/dL (32.0-36.0); MEAN CORPUSCULAR HEMOGLOB 30.8 pg (26.0-34.0); MEAN CORPUSCULAR VOLUME 89.5 fL (80-100); MEAN PLATELET VOLUME 9.8 fL (9.2-13.0); MONOCYTES 10.8 %; NEUTROPHILS 53.9 %; NEUTROPHILS ABSOLUTE 4.46 10/3/uL (2.02-8.40); PLATELET COUNT 209 10/3/uL (150-400); RBC DISTRIBUTION WIDTH 12.9 % (12.0-16.0); RED CELL COUNT 5.13 10/6/uL (4.7-6.1); WHITE BLOOD CELLS 8.3 10/3/uL (4.5-10.5)
[2016-11-16 06:49] LABS: INTERNATIONAL NORMAL RATI 1.1 UNITS (-); PROTIME (NOT ORD) 14.1 SEC (12.0-14.5)
[2016-11-16 06:52] LABS: BUN (BLOOD UREA NITROGEN) 15 MG/DL (6-23); CALCIUM, SERUM 9.6 MG/DL (8.5-10.4); CHLORIDE, SERUM 102 MMOL/L (96-112); CO2 (CARBON DIOXIDE) 33 MMOL/L (24-34); CREATININE 1.18 MG/DL (0.70-1.30); GFR AFRICAN AMERICAN 81 ML/MIN (>=60); GFR NON AFRICAN AMERICAN 70 ML/MIN (>=60); GLUCOSE, SERUM 128 MG/DL (60-99); POTASSIUM, SERUM 4.2 MMOL/L (3.5-5.3); SODIUM, SERUM 139 MMOL/L (135-148)
[2016-11-16 08:39] LABS: TEG - ANGLE 74.8 DEG (53-72); TEG - COAGULATION INDEX 2.7 (-3 TO 3); TEG - MAXIMUM AMPLITUDE 68.3 MM (50-70); TEG - RATE 4.8 MIN (5.0-10.0); TEG PLAVIX/EFFIENT/TICLID(ADP) 88.1 % INHIB (< 40)
[2016-11-16 08:40] LABS: MAX AMP (ADP) 20.7 MM (35-68)
[2016-11-17 07:14] LABS: BASOPHILS 0.2 %; BASOPHILS ABSOLUTE 0.02 10/3/uL (0.0-0.16); EOSINOPHILS 1.1 %; HEMATOCRIT 46.7 % (40.0-51.0); HEMOGLOBIN 15.6 g/dL (13.6-17.8); IMMATURE GRANULOCYTES 0.2 %; IMMATURE GRANULOCYTES ABSOLUTE 0.02 10/3/uL (0.0-0.11); LYMPHOCYTES 30.6 %; LYMPHOCYTES ABSOLUTE 2.67 10/3/uL (0.67-4.30); MEAN CORPUS HGB CONC 33.4 g/dL (32.0-36.0); MEAN CORPUSCULAR HEMOGLOB 29.8 pg (26.0-34.0); MEAN CORPUSCULAR VOLUME 89.3 fL (80-100); MEAN PLATELET VOLUME 9.9 fL (9.2-13.0); MONOCYTES 11.6 %; MONOCYTES ABSOLUTE 1.01 10/3/uL (0.21-1.20); NEUTROPHILS 56.3 %; NEUTROPHILS ABSOLUTE 4.91 10/3/uL (2.02-8.40); PLATELET COUNT 223 10/3/uL (150-400); RBC DISTRIBUTION WIDTH 12.9 % (12.0-16.0); RED CELL COUNT 5.23 10/6/uL (4.7-6.1); WHITE BLOOD CELLS 8.7 10/3/uL (4.5-10.5)
[2016-11-17 07:16] LABS: MANUAL DIFF NO %
[2016-11-17 07:22] LABS: BUN (BLOOD UREA NITROGEN) 15 MG/DL (6-23); CALCIUM, SERUM 9.7 MG/DL (8.5-10.4); CHLORIDE, SERUM 99 MMOL/L (96-112); CO2 (CARBON DIOXIDE) 34 MMOL/L (24-34); CREATININE 1.27 MG/DL (0.70-1.30); GFR AFRICAN AMERICAN 74 ML/MIN (>=60); GFR NON AFRICAN AMERICAN 64 ML/MIN (>=60); POTASSIUM, SERUM 3.9 MMOL/L (3.5-5.3); SODIUM, SERUM 140 MMOL/L (135-148)
[2016-11-17 07:23] LABS: GLUCOSE, SERUM 158 MG/DL (60-99)
[2016-11-17 08:53] LABS: TEG - COAGULATION INDEX 0.6 (-3 TO 3); TEG - MAXIMUM AMPLITUDE 65.1 MM (50-70); TEG - RATE 6.8 MIN (5.0-10.0)
[2016-11-17 08:55] LABS: TEG PLAVIX/EFFIENT/TICLID(ADP) 75.8 % INHIB (< 40)
[2016-11-17 08:56] LABS: MAX AMP (ADP) 21.6 MM (35-68)
[2016-11-17 12:13] LABS: ASCORBIC ACID (UR NOT ORDER) 20 (NEG); BILIRUBIN, URINE NEGATIVE (NEG); KETONE, URINE NEGATIVE (NEG); LEUKOCYTE ESTERASE(NOT OR NEG (NEG); WBC (NOT ORDERED) (RFLEX) 4 (0-5)
[2016-11-18 06:20] LABS: BASOPHILS 0.3 %; BASOPHILS ABSOLUTE 0.03 10/3/uL (0.0-0.16); HEMATOCRIT 45.2 % (40.0-51.0); HEMOGLOBIN 15.3 g/dL (13.6-17.8); IMMATURE GRANULOCYTES 0.4 %; IMMATURE GRANULOCYTES ABSOLUTE 0.04 10/3/uL (0.0-0.11); LYMPHOCYTES 31.4 %; LYMPHOCYTES ABSOLUTE 3.17 10/3/uL (0.67-4.30); MEAN CORPUS HGB CONC 33.8 g/dL (32.0-36.0); MEAN CORPUSCULAR HEMOGLOB 30.2 pg (26.0-34.0); MEAN CORPUSCULAR VOLUME 89.2 fL (80-100); MEAN PLATELET VOLUME 9.8 fL (9.2-13.0); MONOCYTES 11.3 %; MONOCYTES ABSOLUTE 1.14 10/3/uL (0.21-1.20); NEUTROPHILS 55.6 %; PLATELET COUNT 227 10/3/uL (150-400); RBC DISTRIBUTION WIDTH 13.1 % (12.0-16.0); RED CELL COUNT 5.07 10/6/uL (4.7-6.1); WHITE BLOOD CELLS 10.1 10/3/uL (4.5-10.5)
[2016-11-18 06:22] LABS: MANUAL DIFF NO %
[2016-11-18 06:29] LABS: PROTIME (NOT ORD) 13.5 SEC (12.0-14.5)
[2016-11-18 06:37] LABS: % IRON SAT 27 % (20-50); A/G RATIO 0.9 (0.7-1.9); ALBUMIN 3.6 G/DL (3.5-5.0); ALKALINE PHOSPHATASE 69 U/L (45-117); CALCIUM, SERUM 9.2 MG/DL (8.5-10.4); CHLORIDE, SERUM 102 MMOL/L (96-112); CO2 (CARBON DIOXIDE) 32 MMOL/L (24-34); CREATININE 1.33 MG/DL (0.70-1.30); GFR AFRICAN AMERICAN 70 ML/MIN (>=60); GFR NON AFRICAN AMERICAN 60 ML/MIN (>=60); GLOBULIN 3.8 G/DL (2.5-4.1); GLUCOSE, SERUM 164 MG/DL (60-99); IRON BINDING CAPACITY 337 MCG/DL (250-450); IRON, SERUM 92 MCG/DL (35-150); POTASSIUM, SERUM 4.1 MMOL/L (3.5-5.3); SGOT(AST) 30 U/L (5-40); SGPT(ALT) 64 U/L (5-65); SODIUM, SERUM 141 MMOL/L (135-148); TOTAL BILIRUBIN 0.4 MG/DL (0-1.2); TOTAL PROTEIN 7.4 G/DL (6.0-8.5)
[2016-11-18 06:38] LABS: BUN (BLOOD UREA NITROGEN) 19 MG/DL (6-23); DIRECT BILIRUBIN < 0.1 MG/DL (0.0-0.4); INDIRECT BILIRUBIN(NOT ORDER) 0.3 MG/DL (0.1-0.9)
[2016-11-18 07:18] LABS: TEG - ANGLE 70.5 DEG (53-72); TEG - COAGULATION INDEX 0.9 (-3 TO 3); TEG - MAXIMUM AMPLITUDE 63.8 MM (50-70); TEG - RATE 6.1 MIN (5.0-10.0); TEG PLAVIX/EFFIENT/TICLID(ADP) 54.7 % INHIB (< 40)
[2016-11-18 07:19] LABS: MAX AMP (ADP) 36.3 MM (35-68)
[2016-11-19 05:37] LABS: ALBUMIN 3.9 G/DL (3.5-5.0); ALKALINE PHOSPHATASE 73 U/L (45-117); CALCIUM, SERUM 9.4 MG/DL (8.5-10.4); CHLORIDE, SERUM 102 MMOL/L (96-112); CO2 (CARBON DIOXIDE) 31 MMOL/L (24-34); CREATININE 1.36 MG/DL (0.70-1.30); GFR AFRICAN AMERICAN 68 ML/MIN (>=60); GFR NON AFRICAN AMERICAN 59 ML/MIN (>=60); GLOBULIN 4.1 G/DL (2.5-4.1); GLUCOSE, SERUM 143 MG/DL (60-99); POTASSIUM, SERUM 4.1 MMOL/L (3.5-5.3); SGOT(AST) 26 U/L (5-40); SGPT(ALT) 67 U/L (5-65); SODIUM, SERUM 140 MMOL/L (135-148); TOTAL BILIRUBIN 0.3 MG/DL (0-1.2)
[2016-11-19 05:39] LABS: INTERNATIONAL NORMAL RATI 1.1 UNITS (-); PROTIME (NOT ORD) 13.6 SEC (12.0-14.5)
[2016-11-19 05:44] LABS: BASOPHILS 0.2 %; BASOPHILS ABSOLUTE 0.02 10/3/uL (0.0-0.16); EOSINOPHILS 1.1 %; EOSINOPHILS ABSOLUTE 0.12 10/3/uL (0.0-0.53); HEMOGLOBIN 16.1 g/dL (13.6-17.8); IMMATURE GRANULOCYTES 0.5 %; IMMATURE GRANULOCYTES ABSOLUTE 0.05 10/3/uL (0.0-0.11); LYMPHOCYTES 29.5 %; LYMPHOCYTES ABSOLUTE 3.22 10/3/uL (0.67-4.30); MANUAL DIFF NO %; MEAN CORPUS HGB CONC 33.5 g/dL (32.0-36.0); MEAN CORPUSCULAR VOLUME 89.4 fL (80-100); MEAN PLATELET VOLUME 9.9 fL (9.2-13.0); MONOCYTES 10.2 %; MONOCYTES ABSOLUTE 1.12 10/3/uL (0.21-1.20); NEUTROPHILS 58.5 %; PLATELET COUNT 254 10/3/uL (150-400); RED CELL COUNT 5.37 10/6/uL (4.7-6.1); WHITE BLOOD CELLS 10.9 10/3/uL (4.5-10.5)
[2016-11-19 05:51] LABS: BUN (BLOOD UREA NITROGEN) 15 MG/DL (6-23); DIRECT BILIRUBIN < 0.1 MG/DL (0.0-0.4); INDIRECT BILIRUBIN(NOT ORDER) 0.2 MG/DL (0.1-0.9)
[2016-11-19 06:03] LABS: MAX AMP (ADP) 45.7 MM (35-68); TEG PLAVIX/EFFIENT/TICLID(ADP) 37.4 % INHIB (< 40)
[2016-11-19 13:38] LABS: HCO3 (ACTUAL BICARBONATE) 25.8 MEQ/L (23-27); HEMOBLOGIN CONTENT 14.8 G/DL (14-18); INSTRUMENT SERIAL # 11843; METHEMOGLOBIN 0.4 % (0-3); MODE SIMV; O2 CONTENT 20.9 VOL% (18-24); PCO2 (CO2 TENSION) 51 MMHG (35-45); PO2 (O2 TENSION) 210 MMHG (79-93); SAMPLE Arterial; TIDAL VOLUME 800 ML; pH 7.32 (7.37-7.43)
[2016-11-19 13:55] LABS: HEMOGLOBIN 14.1 g/dL (13.6-17.8); PLATELET COUNT 199 10/3/uL (150-400)
[2016-11-19 13:56] LABS: FIBRINOGEN 337 MG/DL (230-462); HEMATOCRIT 42.5 % (40.0-51.0); INTERNATIONAL NORMAL RATI 1.3 UNITS (-); PARTIAL THROMBO TIME 32.1 SEC (22.5-37.2)
[2016-11-19 13:58] LABS: PROTIME (NOT ORD) 15.7 SEC (12.0-14.5)
[2016-11-19 14:00] LABS: BUN (BLOOD UREA NITROGEN) 17 MG/DL (6-23); CALCIUM, SERUM 9.2 MG/DL (8.5-10.4); CHLORIDE, SERUM 106 MMOL/L (96-112); CO2 (CARBON DIOXIDE) 27 MMOL/L (24-34); CREATININE 1.51 MG/DL (0.70-1.30); GFR AFRICAN AMERICAN 60 ML/MIN (>=60); GFR NON AFRICAN AMERICAN 52 ML/MIN (>=60); GLUCOSE, SERUM 135 MG/DL (60-99); POTASSIUM, SERUM 4.5 MMOL/L (3.5-5.3); SODIUM, SERUM 143 MMOL/L (135-148)
[2016-11-19 14:50] LABS: BE (BASE EXCESS) 0.7 MEQ/L (0 +/- 2.5); CARBOXYHEMOGLOBIN 0.2 % (0-3); HCO3 (ACTUAL BICARBONATE) 27.2 MEQ/L (23-27); HEMOBLOGIN CONTENT 14.8 G/DL (14-18); INSTRUMENT SERIAL # 11843; METHEMOGLOBIN 0.5 % (0-3); MODE SIMV; O2 CONTENT 20.8 VOL% (18-24); PCO2 (CO2 TENSION) 51 MMHG (35-45); PO2 (O2 TENSION) 195 MMHG (79-93); SAMPLE Arterial; pH 7.35 (7.37-7.43)
[2016-11-19 14:51] LABS: TIDAL VOLUME 800 ML
[2016-11-19 18:34] LABS: BE (BASE EXCESS) 0.2 MEQ/L (0 +/- 2.5); CARBOXYHEMOGLOBIN 0.6 % (0-3); DEVICE HFNC; HCO3 (ACTUAL BICARBONATE) 26.7 MEQ/L (23-27); HEMOBLOGIN CONTENT 15.1 G/DL (14-18); INSTRUMENT SERIAL # 11843; METHEMOGLOBIN 0.4 % (0-3); O2 CONTENT 19.8 VOL% (18-24); PCO2 (CO2 TENSION) 50 MMHG (35-45); PO2 (O2 TENSION) 74 MMHG (79-93); SAMPLE Arterial; pH 7.35 (7.37-7.43)
[2016-11-19 19:18] LABS: HEMATOCRIT 41.4 % (40.0-51.0); HEMOGLOBIN 13.9 g/dL (13.6-17.8)
[2016-11-19 19:30] LABS: POTASSIUM, SERUM 4.9 MMOL/L (3.5-5.3)
[2016-11-20 03:27] LABS: HEMATOCRIT 41.4 % (40.0-51.0); HEMOGLOBIN 13.8 g/dL (13.6-17.8); MEAN CORPUS HGB CONC 33.3 g/dL (32.0-36.0); MEAN CORPUSCULAR HEMOGLOB 29.9 pg (26.0-34.0); MEAN CORPUSCULAR VOLUME 89.6 fL (80-100); MEAN PLATELET VOLUME 9.7 fL (9.2-13.0); PLATELET COUNT 193 10/3/uL (150-400); RBC DISTRIBUTION WIDTH 13.2 % (12.0-16.0); RED CELL COUNT 4.62 10/6/uL (4.7-6.1)
[2016-11-20 03:28] LABS: MANUAL DIFF YES %; WHITE BLOOD CELLS 22.7 10/3/uL (4.5-10.5)
[2016-11-20 03:39] LABS: CALCIUM, SERUM 8.8 MG/DL (8.5-10.4); CHLORIDE, SERUM 106 MMOL/L (96-112); CO2 (CARBON DIOXIDE) 26 MMOL/L (24-34); CREATININE 1.41 MG/DL (0.70-1.30); GFR AFRICAN AMERICAN 65 ML/MIN (>=60); GFR NON AFRICAN AMERICAN 56 ML/MIN (>=60); POTASSIUM, SERUM 4.7 MMOL/L (3.5-5.3); SODIUM, SERUM 142 MMOL/L (135-148)
[2016-11-20 03:42] LABS: BUN (BLOOD UREA NITROGEN) 25 MG/DL (6-23); GLUCOSE, SERUM 135 MG/DL (60-99)
[2016-11-20 03:53] LABS: BAND NEUTROPHILS 12 %; LYMPHOCYTES 3 %; LYMPHOCYTES ABSOLUTE (CALC) 0.68 10/3/uL (0.67-4.30); MONOCYTES 1 %; MONOCYTES ABSOLUTE (CALC) 0.23 10/3/uL (0.21-1.20); NEUTROPHILS ABSOLUTE (CALC) 21.79 10/3/uL (2.02-8.40); SEGMENTED NEUTROPHIL (0) 84 %; TOTAL NUCLEATED CELLS 100
[2016-11-20 03:54] LABS: PLATELET ESTIMATE ADQ (ADEQUATE); RBC MORPHOLOGY NORM (NORMAL)
[2016-11-20 16:47] LABS: BASOPHILS 0 %; EOSINOPHILS 0 %; IMMATURE GRANULOCYTES 0.3 %; IMMATURE GRANULOCYTES ABSOLUTE 0.05 10/3/uL (0.0-0.11); LYMPHOCYTES 5.1 %; MEAN CORPUS HGB CONC 32.3 g/dL (32.0-36.0); MEAN CORPUSCULAR HEMOGLOB 29.2 pg (26.0-34.0); MEAN CORPUSCULAR VOLUME 90.3 fL (80-100); MEAN PLATELET VOLUME 9.6 fL (9.2-13.0); MONOCYTES 10.7 %; MONOCYTES ABSOLUTE 1.89 10/3/uL (0.21-1.20); NEUTROPHILS 83.9 %; PLATELET COUNT 149 10/3/uL (150-400); RBC DISTRIBUTION WIDTH 13.4 % (12.0-16.0); WHITE BLOOD CELLS 17.6 10/3/uL (4.5-10.5)
[2016-11-20 16:49] LABS: HEMATOCRIT 28.8 % (40.0-51.0); HEMOGLOBIN 9.3 g/dL (13.6-17.8); MANUAL DIFF NO %; RED CELL COUNT 3.19 10/6/uL (4.7-6.1)
[2016-11-20 16:59] LABS: BUN (BLOOD UREA NITROGEN) 25 MG/DL (6-23); CHLORIDE, SERUM 112 MMOL/L (96-112); CO2 (CARBON DIOXIDE) 23 MMOL/L (24-34); GFR AFRICAN AMERICAN 98 ML/MIN (>=60); GFR NON AFRICAN AMERICAN 85 ML/MIN (>=60); GLUCOSE, SERUM 125 MG/DL (60-99); SODIUM, SERUM 141 MMOL/L (135-148)
[2016-11-20 17:00] LABS: CALCIUM, SERUM 6.2 MG/DL (8.5-10.4); POTASSIUM, SERUM 3.2 MMOL/L (3.5-5.3)
[2016-11-21 01:37] LABS: HEMATOCRIT 39.8 % (40.0-51.0); HEMOGLOBIN 13.3 g/dL (13.6-17.8)
[2016-11-21 01:39] LABS: POTASSIUM, SERUM 5.1 MMOL/L (3.5-5.3)
[2016-11-21 05:53] LABS: BUN (BLOOD UREA NITROGEN) 27 MG/DL (6-23); CHLORIDE, SERUM 108 MMOL/L (96-112); CO2 (CARBON DIOXIDE) 24 MMOL/L (24-34); GLUCOSE, SERUM 103 MG/DL (60-99); SODIUM, SERUM 142 MMOL/L (135-148)
[2016-11-21 05:56] LABS: CALCIUM, SERUM 8.8 MG/DL (8.5-10.4); CREATININE 1.52 MG/DL (0.70-1.30); GFR AFRICAN AMERICAN 59 ML/MIN (>=60); GFR NON AFRICAN AMERICAN 51 ML/MIN (>=60)
[2016-11-21 06:59] LABS: BASOPHILS 0 %; BASOPHILS ABSOLUTE 0.01 10/3/uL (0.0-0.16); EOSINOPHILS 0 %; IMMATURE GRANULOCYTES 0.3 %; IMMATURE GRANULOCYTES ABSOLUTE 0.07 10/3/uL (0.0-0.11); LYMPHOCYTES 7.6 %; LYMPHOCYTES ABSOLUTE 1.86 10/3/uL (0.67-4.30); MEAN CORPUS HGB CONC 33.1 g/dL (32.0-36.0); MEAN CORPUSCULAR HEMOGLOB 29.7 pg (26.0-34.0); MEAN CORPUSCULAR VOLUME 89.9 fL (80-100); MEAN PLATELET VOLUME 10.2 fL (9.2-13.0); MONOCYTES 12.7 %; MONOCYTES ABSOLUTE 3.11 10/3/uL (0.21-1.20); NEUTROPHILS 79.4 %; NEUTROPHILS ABSOLUTE 19.37 10/3/uL (2.02-8.40); PLATELET COUNT 181 10/3/uL (150-400); RBC DISTRIBUTION WIDTH 13.7 % (12.0-16.0); WHITE BLOOD CELLS 24.4 10/3/uL (4.5-10.5)
[2016-11-21 07:01] LABS: MANUAL DIFF NO %; RED CELL COUNT 4.34 10/6/uL (4.7-6.1)
[2016-11-22 05:08] LABS: BASOPHILS 0.1 %; BASOPHILS ABSOLUTE 0.01 10/3/uL (0.0-0.16); EOSINOPHILS 0 %; HEMATOCRIT 37.2 % (40.0-51.0); HEMOGLOBIN 12.1 g/dL (13.6-17.8); IMMATURE GRANULOCYTES 0.6 %; LYMPHOCYTES 12.3 %; MANUAL DIFF NO %; MEAN CORPUS HGB CONC 32.5 g/dL (32.0-36.0); MEAN CORPUSCULAR HEMOGLOB 29.2 pg (26.0-34.0); MEAN CORPUSCULAR VOLUME 89.6 fL (80-100); MEAN PLATELET VOLUME 9.9 fL (9.2-13.0); MONOCYTES 12.6 %; MONOCYTES ABSOLUTE 2.05 10/3/uL (0.21-1.20); NEUTROPHILS 74.4 %; PLATELET COUNT 177 10/3/uL (150-400); RBC DISTRIBUTION WIDTH 13.7 % (12.0-16.0); RED CELL COUNT 4.15 10/6/uL (4.7-6.1); WHITE BLOOD CELLS 16.3 10/3/uL (4.5-10.5)
[2016-11-22 05:22] LABS: BUN (BLOOD UREA NITROGEN) 26 MG/DL (6-23); CALCIUM, SERUM 9.2 MG/DL (8.5-10.4); CHLORIDE, SERUM 100 MMOL/L (96-112); CO2 (CARBON DIOXIDE) 32 MMOL/L (24-34); CREATININE 1.08 MG/DL (0.70-1.30); GFR AFRICAN AMERICAN 90 ML/MIN (>=60); GFR NON AFRICAN AMERICAN 77 ML/MIN (>=60); GLUCOSE, SERUM 174 MG/DL (60-99); POTASSIUM, SERUM 4.7 MMOL/L (3.5-5.3); SODIUM, SERUM 137 MMOL/L (135-148)
[2016-11-23 06:36] LABS: BASOPHILS 0.1 %; BASOPHILS ABSOLUTE 0.01 10/3/uL (0.0-0.16); EOSINOPHILS 0.3 %; EOSINOPHILS ABSOLUTE 0.04 10/3/uL (0.0-0.53); HEMATOCRIT 38.7 % (40.0-51.0); HEMOGLOBIN 12.5 g/dL (13.6-17.8); IMMATURE GRANULOCYTES 1.2 %; IMMATURE GRANULOCYTES ABSOLUTE 0.14 10/3/uL (0.0-0.11); LYMPHOCYTES 21.3 %; LYMPHOCYTES ABSOLUTE 2.52 10/3/uL (0.67-4.30); MEAN CORPUS HGB CONC 32.3 g/dL (32.0-36.0); MEAN CORPUSCULAR HEMOGLOB 29.3 pg (26.0-34.0); MEAN CORPUSCULAR VOLUME 90.6 fL (80-100); MEAN PLATELET VOLUME 9.7 fL (9.2-13.0); MONOCYTES 13.5 %; NEUTROPHILS 63.6 %; NEUTROPHILS ABSOLUTE 7.53 10/3/uL (2.02-8.40); PLATELET COUNT 226 10/3/uL (150-400); RBC DISTRIBUTION WIDTH 13.5 % (12.0-16.0); RED CELL COUNT 4.27 10/6/uL (4.7-6.1); WHITE BLOOD CELLS 11.8 10/3/uL (4.5-10.5)
[2016-11-23 06:37] LABS: MANUAL DIFF NO %
[2016-11-23 06:45] LABS: BUN (BLOOD UREA NITROGEN) 26 MG/DL (6-23); CALCIUM, SERUM 9.4 MG/DL (8.5-10.4); CHLORIDE, SERUM 98 MMOL/L (96-112); CO2 (CARBON DIOXIDE) 34 MMOL/L (24-34); CREATININE 0.96 MG/DL (0.70-1.30); GFR AFRICAN AMERICAN 103 ML/MIN (>=60); GFR NON AFRICAN AMERICAN 89 ML/MIN (>=60); POTASSIUM, SERUM 4.5 MMOL/L (3.5-5.3); SODIUM, SERUM 135 MMOL/L (135-148)
[2016-11-23 06:46] LABS: GLUCOSE, SERUM 125 MG/DL (60-99)
[2016-11-23] MEDS ORDERED: HALF81 PO (11:57)
[2016-11-23] MEDS ORDERED: PLAVIX PO (11:57)
[2016-11-23] MEDS ORDERED: LIPITOR40 PO (11:57)
[2016-11-23] MEDS ORDERED: CORDARONE PO (11:58)
[2016-11-23] MEDS ORDERED: NITROQUICK0.3 MG SL (11:58)
[2016-11-23] MEDS ORDERED: LOP25 PO (11:58)
[2016-11-23] MEDS ORDERED: NORCO1 TAB PO (12:01)
[2016-11-23] MEDS ORDERED: SPIRIVA INH (12:01)
[2016-11-23] MEDS ORDERED: PROAIR HFA INH (12:02)
== END 2016-11-23 13:37 | disposition home or self-care (01) | DRG 234 ==
LOC: 6NO 01:44 → CCU 11-12 16:13 → 7NO 11-13 13:41 → SDC/OF 11-19 11:50 → CVICU 11-19 12:47 → 5NO 11-20 17:37
PROVIDERS: Anesthesiology; Hospitalist; Internal Medicine; Internal Medicine Cardiovascular Disease; Internal Medicine Critical Care Medicine; Nurse Practitioner Family; Pediatrics; Thoracic Surgery (Cardiothoracic Vascular Surgery)
PROC: 4A023N7 Measurement of Cardiac Sampling and Pressure, Left Heart, Percutaneous Approach (ICD-10-PCS; principal; 2016-11-11)
PROC: B2111ZZ Fluoroscopy of Multiple Coronary Arteries using Low Osmolar Contrast (ICD-10-PCS; 2016-11-11)
PROC: B2151ZZ Fluoroscopy of Left Heart using Low Osmolar Contrast (ICD-10-PCS; 2016-11-11)
PROC: 0PH000Z Insertion of Rigid Plate Internal Fixation Device into Sternum, Open Approach (ICD-10-PCS; 2016-11-19)
PROC: 5A1221Z Performance of Cardiac Output, Continuous (ICD-10-PCS; 2016-11-19)
PROC: B246ZZ4 Ultrasonography of Right and Left Heart, Transesophageal (ICD-10-PCS; 2016-11-19)
PROC: 021309W Bypass Coronary Artery, Four or More Arteries from Aorta with Autologous Venous Tissue, Open Approach (ICD-10-PCS; 2016-11-19 07:30)
PROC: 02100Z9 Bypass Coronary Artery, One Artery from Left Internal Mammary, Open Approach (ICD-10-PCS; 2016-11-19 07:30)
PROC: 06BP0ZZ Excision of Right Saphenous Vein, Open Approach (ICD-10-PCS; 2016-11-19 07:30)
DX: I21.4 Non-ST elevation (NSTEMI) myocardial infarction (principal); I31.9 Disease of pericardium, unspecified; Z68.42 Body mass index [BMI] 45.0-49.9, adult; I11.0 Hypertensive heart disease with heart failure; I50.22 Chronic systolic (congestive) heart failure; E11.9 Type 2 diabetes mellitus without complications; E66.01 Morbid (severe) obesity due to excess calories; I25.110 Atherosclerotic heart disease of native coronary artery with unstable angina pectoris; G47.33 Obstructive sleep apnea (adult) (pediatric); Z79.84 Long term (current) use of oral hypoglycemic drugs; K21.9 Gastro-esophageal reflux disease without esophagitis; F17.210 Nicotine dependence, cigarettes, uncomplicated; Z79.82 Long term (current) use of aspirin; E78.5 Hyperlipidemia, unspecified
CPT/HCPCS: 36415; 36600; 71010; 71020; 71250; 80048; 80053; 80061; 80069; 81001; 82248; 82330; 82550; 82553; 82803; 82805; 82947; 82962; 83036; 83540; 83550; 83735; 83880; 84100; 84132; 84295; 84484; 85014; 85018; 85025; 85049; 85347; 85384; 85576; 85576-59; 85610; 85730; 86850; 86900; 86901; 86920; 87641; 93005; 93312; 93320; 93325; 93458; 93880; 94002; 94640; 94770; 99152; A9270-GY; C1713; C1769; C1887; C1894; C8929; G0365; J0690; J1200; J1644; J1720; J1940; J2150; J2250; J2370; J2405; J2440; J2720; J2930; J3010; J3370; J3475; J3480; P9045; P9047; Q9957; Q9967